=== PATIENT | male | born 1980 | race Caucasian/White ===

== ENCOUNTER 2017-02-01 23:29 | Emergency (ER) | payer OTHER ==
--- NOTE | 2017-02-02 00:12 | ED Physician Documentation ---
PD HPI HEADACHE - Stated complaint Stated Complaint: DANGELO,GLF - Chief complaint Chief Complaint: Neuro - History obtained from History obtained from: Patient - History of Present Illness Timing - onset: Enter time (21:30), Today Timing - onset during: Rest Timing - details: Abrupt onset Pain level now: 8 Worst headache ever?: Worst headache ever? Location: Front, Right, Left Quality: Throbbing Associated symptoms: Nausea, Vomiting. No: Fever, Stiff neck, Weakness, Numbness, Syncope, Seizure, Eye pain, Vision changes Improved by: Nothing Worsened by: Other (no exacerbating factors) Contributing factors: No: Possible carbon monoxide, Recent illness, Trauma Similar symptoms before: Has not had sx before Recently seen: Not recently seen Review of Systems Constitutional: denies: Fever, Chills, Sweats Eyes: reports: Photophobia. denies: Loss of vision, Decreased vision Ears: reports: Reviewed and negative Nose: reports: Reviewed and negative Cardiac: reports: Reviewed and negative Respiratory: reports: Reviewed and negative GI: reports: Nausea, Vomiting. denies: Abdominal Pain Skin: denies: Rash Neurologic: reports: Headache. denies: Generalized weakness, Focal weakness, Numbness, Confused, Altered mental status PD PAST MEDICAL HISTORY - Past Medical History Past Medical History: No - Present Medications Home Medications: Ambulatory Orders Medication Instructions Recorded Confirmed No Known Home Medications [No 02/01/17 02/01/17 Known Home Medications] - Allergies Allergies/Adverse Reactions: Allergies Allergy/AdvReac Type Severity Reaction Status Date / Time No Known Drug Allergies Allergy Verified 02/01/17 23:36 - Social History Does the pt smoke?: No Smoking Status: Never smoker PD ED PE NORMAL - Vitals Vital signs reviewed: Yes - General General: Alert and oriented X 3, No acute distress, Well developed/nourished - HEENT HEENT: Atraumatic, PERRL, EOMI - Neck Neck: Supple, no meningeal sign - Cardiac Cardiac: RRR, No murmur - Respiratory Respiratory: No respiratory distress, Clear bilaterally - Abdomen Abdomen: Soft, Non tender - Derm Derm: Normal color, Warm and dry, No rash - Neuro Neuro: Alert and oriented X 3, 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 Departure - Departure Disposition: 01 Home, Self Care Clinical Impression: Headache Qualifiers: Headache type: unspecified Headache chronicity pattern: acute headache Intractability: not intractable Qualified Code(s): R51 - Headache Condition: Good Instructions: ED Cephalgia Unspecified Follow-Up: UMER Patiño [Provider Group] Comments: While there is no abnormality on the CT scan that would explain your headache, there is a mass. You will need further testing to determine the nature of this mass. Arrange for next available appointment with your doctor. Discharge Date/Time: 02/02/17 01:56
[2017-02-02] MEDS ORDERED: ONDANSETRON ODT 4 MG TABLET TL STA (00:18)
[2017-02-02] MEDS ORDERED: ONDANSETRON ODT 4 MG TABLET ONE (00:20)
--- NOTE | 2017-02-02 00:51 | CT Preliminary Report ---
Exam: CT Head W/O IMPRESSION: 1. Mildly hyperdense extra-axial mass in the high mesial left frontal lobe measures up to 1.9 cm, mos t suggestive of a meningioma. Nonemergent brain MRI with and without contrast is recommended for furt her evaluation. 2. No other acute intracranial process identified. [facility] SITE ID: [id number]
--- NOTE | 2017-02-02 00:54 | CT Report ---
EXAM: CT HEAD EXAM DATE: 02/02/2017 12:33 AM. CLINICAL HISTORY: Headache. COMPARISON: None. TECHNIQUE: Multiaxial CT images were obtained from the foramen magnum to the vertex. IV contrast: Non e. Reformats: Coronal. In accordance with CT protocol optimization, one or more of the following dose reduction techniques w ere utilized for this exam: automated exposure control, adjustment of mA and/or KV based on patient s ize, or use of iterative reconstructive technique. FINDINGS: Parenchyma: No intraparenchymal hemorrhage. No evidence of mass, midline shift, or CT findings of inf arction. Leon-white differentiation is distinct. Extraaxial Spaces: A 1.8 x 1.9 cm mildly hyperdense extra-axial mass is present in the high mesial le ft frontal lobe adjacent to the superior sagittal sinus (image 27, series 3). Ventricles: Normal in size and position. Sinuses: Imaged paranasal sinuses, orbits, and mastoids show no significant abnormality. Bones: No evidence of fracture or calvarial defect. IMPRESSION: 1. Mildly hyperdense extra-axial mass in the high mesial left frontal lobe measures up to 1.9 cm, mos t suggestive of a meningioma. Nonemergent brain MRI with and without contrast is recommended for furt her evaluation. 2. No other acute intracranial process identified. [facility] Referring Provider Line: [phone] SITE ID: [id number]
[2017-02-02] MEDS ORDERED: ACETAMINOPHEN 325 MG TABLET PO STA (01:41)
[2017-02-02] MEDS ORDERED: ACETAMINOPHEN 325 MG TABLET PO ONE (01:46)
[2017-02-02 01:56] VITALS: BP 129/71
== END 2017-02-02 01:56 | disposition home or self-care (01) ==
LOC: ED 23:29
DX: R51 Headache (principal); R11.2 Nausea with vomiting, unspecified; H53.149 Visual discomfort, unspecified
CPT/HCPCS: 70450; 99283; A9270; Q0162